=== PATIENT | male | born 1960 | race Caucasian/White ===

== ENCOUNTER 2017-02-07 22:48 | Emergency (ER) | payer OTHER ==
[2017-02-07 22:58] VITALS: BP 163/87
[2017-02-07] MEDS ORDERED: LIDOCAINE 2% 10 ML MDV ONE (23:09)
--- NOTE | 2017-02-07 23:36 | ED Physician Documentation ---
PD HPI UPPER EXT INJURY - Stated complaint Stated Complaint: FINGER LAC - Chief complaint Chief Complaint: Laceration - History obtained from History obtained from: Patient - History of Present Illness Location: Left, Finger Type of injury: Laceration Where injury occurred: Home Timing - onset: How many minutes ago (40) Timing - details: Abrupt onset Improved by: Immobilization Contributing factors: No: Anticoagulated, Prior ortho surgery Similar symptoms before: Has not had sx before Recently seen: Not recently seen - Additonal information Additional information: Patient is a 57 year old male with no significant past medical history who is presenting to the emergency department for a finger laceration. Patient states that he was slicing vegetables when he sliced the side of his finger. the bleeding didn't stop so he came in for evaluation. Review of Systems Constitutional: denies: Fever, Chills Nose: denies: Epistaxis GI: denies: Nausea, Vomiting Skin: reports: Laceration (s) Musculoskeletal: reports: Extremity pain Endocrine: denies: Easy bruising / bleeding Immunocompromised: denies: Immunocompromised PD PAST MEDICAL HISTORY - Past Medical History Past Medical History: Yes Cardiovascular: Hypertension Respiratory: None Neuro: None Endocrine/Autoimmune: None GI: None : None HEENT: None Psych: None Musculoskeletal: None Derm: None - Past Surgical History Past Surgical History: Yes General: Other Ortho: Knee replacement - Present Medications Home Medications: Ambulatory Orders Medication Instructions Recorded Confirmed Cephalexin [Keflex] 500 mg PO Q6H 7 Days 02/07/17 - Allergies Allergies/Adverse Reactions: Allergies Allergy/AdvReac Type Severity Reaction Status Date / Time No Known Drug Allergies Allergy Verified 02/07/17 22:58 - Social History Does the pt smoke?: No Smoking Status: Never smoker Does the pt drink ETOH?: Yes Does the pt have substance abuse?: No - Immunizations Immunizations are current?: Yes - POLST Patient has POLST: No PD ED PE NORMAL - Vitals Vital signs reviewed: Yes - General General: Alert and oriented X 3, No acute distress - HEENT HEENT: Atraumatic, PERRL - Cardiac Cardiac: RRR - Respiratory Respiratory: No respiratory distress - Derm Derm: Normal color, Warm and dry - Neuro Neuro: Alert and oriented X 3, 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 Moderate bleeding) Results - Vitals Vitals: Vital Signs - 24 hr 02/07/17 22:56 Temperature 36.4 C L Heart Rate 59 L Respiratory 18 Rate Blood Pressure 163/87 H O2 Saturation 98 Oxygen O2 Source Room air Procedures - Regional nerve block Nerve block site: Digital - note digit(s) (left hand second digit) Right / left: Left Nerve block anesthesia: Lidocaine 1% Nerve block aftercare: Excellent anesthesia PD MEDICAL DECISION MAKING - ED course Complexity details: reviewed old records, reviewed results, re-evaluated patient , considered differential, d/w patient, d/w family ED course: Patient was seen and examined at bedside. digital block was performed and a tourniquet was placed on the finger. the bleeding vessels were cauterized. Patient was up to date on his tetanus. Dressing was placed over the wound. Patient required no further work up and was stable for discharge with outpatient follow up. Departure - Departure Disposition: 01 Home, Self Care Clinical Impression: Laceration Condition: Good Instructions: ED Laceration Hand Follow-Up: primary,care provider [Other] - As Needed Prescriptions: Cephalexin [Keflex] 500 mg PO Q6H 7 Days Comments: Your symptoms today are due to the avulsion. You should keep the dressing on the wound for the next 24-48 hours. You can take motrin or tylenol as needed for pain. You should follow up with your pmd if your symptoms persist for more than the next few days. You can return to the emergency department at any time for new, worsening or uncontrollable symptoms. Discharge Date/Time: 02/07/17 23:45
== END 2017-02-07 23:45 | disposition home or self-care (01) ==
LOC: ED 22:48
DX: S61.211A Laceration without foreign body of left index finger without damage to nail, initial encounter (principal); W26.0XXA Contact with knife, initial encounter; Y93.G1 Activity, food preparation and clean up; Y92.010 Kitchen of single-family (private) house as the place of occurrence of the external cause
CPT/HCPCS: 12001; 64450; 99282; 99283

== ENCOUNTER 2017-09-13 17:48 | Emergency (ER) | payer OTHER ==
[2017-09-13 17:56] VITALS: BP 155/90
--- NOTE | 2017-09-13 18:12 | ED Physician Documentation ---
PD HPI UPPER EXT INJURY - Stated complaint Stated Complaint: LAC L HAND - Chief complaint Chief Complaint: Ext Problem - History obtained from History obtained from: Patient - History of Present Illness Location: Left, Finger (index) Type of injury: Laceration Where injury occurred: Home Timing - duration: Minutes Timing - details: Abrupt onset, Still present Improved by: Rest, Immobilization Worsened by: Moving, Palpating Associated symptoms: No: Weakness, Numbness, Tingling Contributing factors: No: Anticoagulated Similar symptoms before: Diagnosis (skiv of skin) Recently seen: Not recently seen - Additonal information Additional information: 57-year-old male was using a sharp knife to cut some vegetables when he sliced the tip of his left index finger. He sliced through the nail and the distal phalange. He has not been able to control the bleeding. Review of Systems Constitutional: denies: Fever Eyes: denies: Decreased vision Ears: denies: Ear pain Nose: denies: Congestion Throat: denies: Sore throat Respiratory: denies: Cough GI: denies: Vomiting : denies: Frequency Skin: reports: Laceration (s) Musculoskeletal: reports: Extremity pain. denies: Neck pain, Back pain PD PAST MEDICAL HISTORY - Past Medical History Cardiovascular: Hypertension Respiratory: None Neuro: None Endocrine/Autoimmune: None GI: None : None HEENT: None Psych: None Musculoskeletal: None Derm: None - Past Surgical History Past Surgical History: Yes General: Other Ortho: Knee replacement - Present Medications Home Medications: Ambulatory Orders Medication Instructions Recorded Confirmed Cephalexin [Keflex] 500 mg PO Q6H 7 Days capsule 02/07/17 Olmesartan Medoxomil [Benicar] 09/13/17 Pravastatin Sodium [Pravachol] 09/13/17 - Allergies Allergies/Adverse Reactions: Allergies Allergy/AdvReac Type Severity Reaction Status Date / Time No Known Drug Allergies Allergy Verified 02/07/17 22:58 - Social History Does the pt smoke?: No Smoking Status: Never smoker Does the pt drink ETOH?: Yes Does the pt have substance abuse?: No - Immunizations Immunizations are current?: Yes - POLST Patient has POLST: No PD ED PE NORMAL - Vitals Vital signs reviewed: Yes (hypertensive) - General General: Alert and oriented X 3, No acute distress, Well developed/nourished - HEENT HEENT: Atraumatic, PERRL - Respiratory Respiratory: No respiratory distress - Derm Derm: Normal color, Warm and dry, No rash - Extremities Extremities: No deformity, No edema, Other (2cm round skiv off of the radial dorsal surface of the left index distally through the radial nail as well. ) - Neuro Neuro: Alert and oriented X 3, No motor deficit, No sensory deficit, Normal speech Eye Opening: Spontaneous Motor: Obeys Commands Verbal: Oriented GCS Score: 15 - Psych Psych: Normal mood, Normal affect Results - Vitals Vitals: Vital Signs - 24 hr 09/13/17 17:53 Temperature 36.5 C Heart Rate 64 Respiratory 17 Rate Blood Pressure 155/90 H O2 Saturation 95 Oxygen O2 Source Room air PD MEDICAL DECISION MAKING - ED course Complexity details: re-evaluated patient, considered differential, d/w patient ED course: 57-year-old male with a skip of skin from his left index finger is treated conservatively with Gelfoam and a pressure dressing. Departure - Departure Clinical Impression: Avulsion of skin of finger Qualifiers: Encounter type: initial encounter Qualified Code(s): S61.209A - Unspecified open wound of unspecified finger without damage to nail, initial encounter Condition: Stable Instructions: ED Avulsion Dermal Follow-Up: Your, doctor [Other]
== END 2017-09-13 18:49 | disposition home or self-care (01) ==
LOC: ED 17:48
DX: S61.211A Laceration without foreign body of left index finger without damage to nail, initial encounter (principal); W26.0XXA Contact with knife, initial encounter; Y93.G1 Activity, food preparation and clean up; Y92.009 Unspecified place in unspecified non-institutional (private) residence as the place of occurrence of the external cause; Z96.659 Presence of unspecified artificial knee joint
CPT/HCPCS: 99282

== ENCOUNTER 2019-07-30 10:00 | Outpatient (CLI) | payer OTHER | END 2019-07-30 10:01 | disposition EMS.NT | LOC: EMS 10:00 | PROVIDERS: ATTEND Surgery | DX: R20.2 Paresthesia of skin (principal) ==